=== PATIENT | female | born 1975 | race Caucasian/White ===

== ENCOUNTER 2019-06-28 15:32 | Emergency (ER) | payer OTHER ==
[~2019-06-28] VITALS: Ht 165.1 cm; Wt 68.0 kg
--- NOTE | 2019-06-28 16:08 | NUR ---
ROSA Sims IN CUSTODY FROM [place] ESCORTED BY OFFICER AWILDA C/O "HTN/HEADACHE AND NAUSEA". TO ER BED 10, HOOKED TO MONITOR, BP UPON ARRIVAL 163/83, CHANGED TO HOSP GOWN, PROVIDED W WARM BLANKET, AWAITING MD OLIVERA.
--- NOTE | 2019-06-28 16:22 | NUR ---
NATALIA LEWIS AT BEDSIDE
--- NOTE | 2019-06-28 16:32 | NUR ---
URINE SAMPLE SENT TO LAB
[2019-06-28] MEDS ORDERED: KETOROLAC TROMETHAMINE INJ 30 MG/ML VIAL ONE (16:45)
[2019-06-28] MEDS ORDERED: METOCLOPRAMIDE HCL 10 MG/2 ML VIAL ONE (16:45)
[2019-06-28] MEDS ORDERED: diphenhydrAMINE HCL 50 MG/ML VIAL ONE (16:45)
[2019-06-28 16:52] LABS: APPEARANCE,URINE Clear (CLEAR); BILIRUBIN,URINE Negative (NEGATIVE); BLOOD, URINE Negative Ery/uL (NEGATIVE); COLOR,URINE Yellow (YELLOW); KETONES,URINE Negative (NEGATIVE); LEUKOCYTE ESTERASE ,URINE Negative (NEGATIVE); NITRITE, URINE Negative (NEGATIVE); PROTEIN,URINE Negative (NEGATIVE); UGLUCOSE Negative (NEGATIVE); UROBILINOGEN,URINE 0.2 EU/dL (0.2)
[2019-06-28] MEDS ORDERED: LORAZEPAM INJ 2 MG/ML VIAL ONE (16:55)
[2019-06-28 16:56] LABS: CREATININE 0.9 mg/dL (0.6-1.3)
[2019-06-28] MEDS ORDERED: diphenhydrAMINE HCL 50 MG/ML VIAL IV ONE (17:00)
[2019-06-28] MEDS ORDERED: KETOROLAC TROMETHAMINE INJ 30 MG/ML VIAL IV ONE (17:00)
[2019-06-28] MEDS ORDERED: IV NS 0.9% 1,000 ML BAG IV ONE (17:00)
[2019-06-28] MEDS ORDERED: METOCLOPRAMIDE HCL 10 MG/2 ML VIAL IV ONE (17:00)
[2019-06-28] MEDS ORDERED: LORAZEPAM INJ 2 MG/ML VIAL IV ONE (17:00)
[2019-06-28 17:01] LABS: ALBUMIN 3.2 g/dL (3.4-5.0); BILIRUBIN,TOTAL 0.3 mg/dL (0.2-1.0); TOTAL PROTEIN, SERUM 7.3 g/dL (6.4-8.2)
--- NOTE | 2019-06-28 18:54 | NUR ---
IV removed. Catheter intact and site benign. Pressure and 4x4 applied to site. No bleeding noted. Patient discharged in custody of Officer Ghislaine #[id number] in stable condition. Patient medically cleared for booking. Written and verbal after care instructions given.
[2019-06-28 19:45] VITALS: BP 143/82
== END 2019-06-28 18:54 ==
LOC: ER 15:33
DX: G43.909 Migraine, unspecified, not intractable, without status migrainosus (principal); R19.7 Diarrhea, unspecified; I10 Essential (primary) hypertension; F41.9 Anxiety disorder, unspecified; Z02.89 Encounter for other administrative examinations; Z59.0 Homelessness
CPT/HCPCS: 36415; 80048; 80076; 81001; 83690; 84703; 96361; 96374; 96375; 99283; J1200; J1885; J2060; J2765; J7030 ×2; 81000-TC

== ENCOUNTER 2019-06-30 17:23 | Emergency (ER) | payer OTHER ==
[~2019-06-30] VITALS: Ht 154.9 cm; Wt 69.4 kg
[2019-06-30 17:40] VITALS: BP 188/115
== END 2019-06-30 18:25 ==
LOC: ER 17:25
DX: I10 Essential (primary) hypertension (principal); G43.909 Migraine, unspecified, not intractable, without status migrainosus

== ENCOUNTER 2025-06-17 21:37 | Emergency (ER) | payer MEDICAID, OTHER ==
[~2025-06-17] VITALS: Ht 157.5 cm; Wt 54.4 kg
[2025-06-17 21:49] VITALS: TEMP 98.1
[2025-06-17] MEDS ORDERED: NALOXONE HCL 0.4 MG/ML AMPUL IV ONE (22:30)
[2025-06-17 22:39] VITALS: BP 170/118; O2SAT 96
== END 2025-06-17 22:43 | disposition left against medical advice (07) ==
LOC: ER 21:50
DX: I10 Essential (primary) hypertension (principal); G43.909 Migraine, unspecified, not intractable, without status migrainosus